=== PATIENT | female | born 1995 | race African-American/Black ===

== ENCOUNTER 2019-02-16 13:24 | Emergency (ER) | payer OTHER ==
--- NOTE | 2019-02-16 14:49 | UC ---
Nausea/Vomiting/Diarrhea HPI - HPI Summary HPI Summary: Vomiting started yesterday and continues today. No diarrhea, other friends have had the "stomach bug" She feels dizzy and lightheaded today - History of Current Complaint Chief Complaint: UCRespiratory Stated Complaint: NAUSEA,CHILLS,WEAKNESS Time Seen by Provider: 02/16/19 14:48 Hx Obtained From: Patient Hx Last Menstrual Period: 02/10/19 ?: No Onset/Duration: Sudden Onset Timing: Intermittent Episodes Lasting: - Numerous episodes since yesterday and vomiting 2 times while here. Severity Initially: Moderate Severity Currently: Moderate Pain Intensity: 5 Location: Diffuse - Generalized discomfort from vomiting. No specific area of tenderness or pain Aggravating Factor(s): Other: - Vomiting Alleviating Factor(s): Other: - Not vomiting Nausea/Vomiting Presence: Nauseated, Vomiting Vomiting Frequency: Every 1-2 hours Nausea/Vomiting Duration: 12-24 hours Vomiting Characteristics: Retching Diarrhea Presence: No - Risk Factors Influenza Risk Factors: Negative - Allergies/Home Medications Allergies/Adverse Reactions: Allergies Allergy/AdvReac Type Severity Reaction Status Date / Time No Known Allergies Allergy Verified 02/16/19 14:06 Home Medications: Home Medications Norgestimate-Ethinyl Estradiol [Tri-Linyah Tablet] 1 tab DAILY 02/16/19 [ History Confirmed 02/16/19] PMH/Surg Hx/FS Hx/Imm Hx Previously Healthy: Yes - Surgical History Surgical History: Yes Surgery Procedure, Year, and Place: [place] - Social History Occupation: Student Lives: Dormitory/Roommates Alcohol Use: Weekly Substance Use Type: None Smoking Status (MU): Never Smoked Tobacco Review of Systems All Other Systems Reviewed And Are Negative: Yes Constitutional: Positive: Chills Skin: Positive: Negative Eyes: Positive: Negative ENT: Positive: Negative Respiratory: Positive: Negative Cardiovascular: Positive: Negative Gastrointestinal: Positive: Vomiting, Nausea, Other - Diffuse abdominal soreness when vomiting Genitourinary: Positive: Negative Motor: Positive: Negative Neurovascular: Positive: Negative Musculoskeletal: Positive: Negative Neurological: Positive: Weakness - Feels weak and lightheaded Psychological: Positive: Negative Is Patient Immunocompromised?: No Physical Exam Triage Information Reviewed: Yes Appearance: No Pain Distress, Well-Nourished, Ill-Appearing - Mildly ill- appearing Vital Signs: Initial Vital Signs Temp 98.3 F 02/16/19 14:07 Pulse 124 02/16/19 14:07 Resp 16 02/16/19 14:07 BP 106/65 02/16/19 14:07 Pulse Ox 100 02/16/19 14:07 Vital Signs Reviewed: Yes Eye Exam: Normal ENT Exam: Normal Neck exam: Normal Respiratory Exam: Normal Cardiovascular Exam: Normal Abdominal Exam: Normal Abdomen Description: Positive: Nontender, No Organomegaly, Soft Bowel Sounds: Positive: Present Musculoskeletal Exam: Normal Neurological Exam: Normal Psychological Exam: Normal Skin Exam: Normal Re-Evaluation - Re-Evaluation First Eval Re-Evaluation Time: 15:55 Naus/Vom/Diarrhea Course/Dx - Course Course Of Treatment: Much improved, will give Zofran for nausea and follow up at school health prn - Differential Dx/Diagnosis Provider Diagnosis: Dehydration Is Visit Related: No Condition At Discharge: Improved Discharge - Sign-Out/Discharge Documenting (check all that apply): Patient Departure All imaging exams completed and their final reports reviewed: No Studies - Discharge Plan Condition: Improved Disposition: HOME Prescriptions: Ondansetron TAB* [Zofran 4 MG Tab*] 4 mg PO Q8H PRN #6 tab PRN Reason: Nausea Patient Education Materials: Dehydration (ED) Forms: *School Release Referrals: No Primary Care Phys,NOPCP [Primary Care Provider] - MIRELLA REZA [, APPLICATION, OTHER] - Additional Instructions: Increase fluids, soup, crackers tonight, Avoid spicy foods, gradually increase to your regular diet tomorrow - Billing Disposition and Condition Condition: IMPROVED Disposition: Home
[2019-02-16] MEDS ORDERED: Ondansetron INJ* 2 MG/ML VIAL IV ONE (14:58)
[2019-02-16] MEDS ORDERED: NS 0.9% 1000 ML** 1,000 ML IV ONE (14:58)
[2019-02-16 15:53] VITALS: BP 103/72
== END 2019-02-16 16:08 | disposition home or self-care (01) ==
LOC: UCCORT 13:24
DX: E86.0 Dehydration (principal); R11.10 Vomiting, unspecified; R19.8 Other specified symptoms and signs involving the digestive system and abdomen
CPT/HCPCS: 96361; 96374; 99202; G0463; J2405